=== PATIENT | male | born 1950 | race Caucasian/White ===

== ENCOUNTER → 2016-08-31 | Day surgery (SDC) | payer OTHER ==
[~2016-08-31] VITALS: Ht 182.9 cm; Wt 128.6 kg
[~2016-08-31] MED LIST: ASPIRIN EC81 MG PO; COREG25 MG PO; DAILY MULTIPLE1 EAC1 PO; DIOVAN320 MG PO; FISH OIL 1,2001 EAC3 PO; LIPITOR80 MG PO; NORCO 5-325 TA1 EACH PO; SERTRALINE HCL25 MG PO
--- NOTE | ~2016-08-31 | OR ---
PATIENT'S NAME: CORRY PALACIO [facility] AGE: 65 Y [address] ROOM: [place] [address] [place] [facility] [place]: 08/31/2016 OR/Procedure Report DISCHARGE DATE: FAMILY PHYSICIAN: CARRIE IVORY MD ATTENDING PHYSICIAN: XI JONES SURGEON: Xi Jones MD LABORER YARD: None. DATE OF PROCEDURE: 08/31/2016 PREOPERATIVE DIAGNOSIS: Right nephrolithiasis. POSTOPERATIVE DIAGNOSIS: Right nephrolithiasis. PROCEDURE PERFORMED: Right extracorporeal shockwave lithotripsy. ANESTHESIA: Monitored anesthesia care. INDICATIONS FOR PROCEDURE: The patient is a pleasant 65-year-old male with history of recurrent nephrolithiasis. He was recently noted on imaging to have a 6 mm right upper pole stone. The patient was explained the risks, benefits, indications, and alternatives to the above procedure and wished to proceed and consented freely. DESCRIPTION OF PROCEDURE: The patient brought back to the operating room, where he was placed on the OR table in the supine position. A surgical time- out was called where patient identification, surgical site, and procedure was then verified. After the patient underwent successful administration of monitored anesthesia care, we then brought the right upper pole renal calculus into focal point using fluoroscopy. We then began performing shockwave lithotripsy, starting at 16 kilovolts and working up sequentially to 24 kilovolts in energy. We delivered 1800 shocks to the stone and we had nice fragmentation by fluoroscopic monitoring. We then carefully scanned the kidney and did not see any other obvious visible stones on fluoroscopy. The patient did tolerate the procedure well. The patient was then awoken from monitored anesthesia care. He was then transferred over to the recovery bed and transported to the recovery room in good condition. COMPLICATIONS: None. DRAINS: None. SPECIMENS: None. FOLLOWUP PLAN: We plan to have the patient back for followup in [facility]rology Clinic in approximately 3 to 4 weeks with a plain film KUB. At that time, we PATIENT'S NAME: CORRY PALACIO [facility] AGE: 65 Y [address] ROOM: [place] [address] [place] [facility] [place] DATE: 08/31/2016 OR/Procedure Report DISCHARGE DATE: FAMILY PHYSICIAN: CARRIE IVORY MD ATTENDING PHYSICIAN: XI JONES will discuss stone prevention as well as consideration of metabolic evaluation including 24 hour urine analysis. XI JONES MD GP/modl /[id number] CC: Carrie Ivory MD d: 08/31/16 1819 t: 09/01/16 0803, OPERATIVE SUMMARY
[2016-08-31 12:02] LABS: BASOPHIL # 0.1 K/uL (0.0-0.2); BASOPHIL % 0.7 %; EOSINOPHIL # 0.2 K/uL (0.0-0.5); EOSINOPHIL % 2.2 %; HEMATOCRIT 45.7 % (37.0-53.0); HEMOGLOBIN 15.3 g/dL (11.0-16.0); IMMATURE GRANULOCYTE % 0.4 %; LYMPHOCYTE # 2.2 K/uL (0.8-4.0); LYMPHOCYTE % 28.6 %; MCH 29.9 pg (27.0-34.0); MCHC 33.5 gm/dL (32.0-36.5); MCV 89.3 fl (83.0-98.0); MONOCYTE # 0.7 K/uL (0.0-1.0); MONOCYTE % 8.8 %; MPV 10.4 fl (9.4-12.4); NEUTROPHIL # (ANC) 4.5 K/uL (1.4-9.0); NEUTROPHIL % 59.3 %; NRBC % 0 /100WBC (0-0.00); PLATELET COUNT 184 K/uL (150-450); RBC 5.12 M/uL (3.50-5.50); RDW-CV 14.2 % (11.9-14.6); WBC 7.6 K/uL (4.0-11.0)
[2016-08-31 13:07] LABS: CALCIUM 8.8 mg/dL (8.5-10.5)
[2016-08-31 13:10] LABS: ALBUMIN 3.6 gm/dL (3.5-5.0); ANION GAP 11.1 (10.0-19.0); POTASSIUM 4.1 mMol/L (3.7-5.1); TOTAL BILIRUBIN 0.7 mg/dL (0.0-1.5); TOTAL PROTEIN 8.3 g/dL (6.0-8.4)
== END | disposition disaster alternative care site (69) ==
LOC: GPOC 08-27 09:00 → GSDC 09:00
PROVIDERS: Urology
PROC: 0TF3XZZ Fragmentation in Right Kidney Pelvis, External Approach (ICD-10-PCS; principal; 2016-08-31)
DX: N20.0 Calculus of kidney (principal); F41.9 Anxiety disorder, unspecified; E78.00 Pure hypercholesterolemia, unspecified; I10 Essential (primary) hypertension; J45.909 Unspecified asthma, uncomplicated; L40.9 Psoriasis, unspecified; F32.9 Major depressive disorder, single episode, unspecified; Z79.899 Other long term (current) drug therapy; Z79.82 Long term (current) use of aspirin; E78.5 Hyperlipidemia, unspecified
CPT/HCPCS: J1100; J2001; J2405; J7030